=== PATIENT | female | born 1980 | race Two or more races ===

== ENCOUNTER 2017-02-23 15:44 | Emergency (ER) | payer MEDICAID ==
[~2017-02-23] VITALS: Ht 157.5 cm; Wt 63.5 kg
[2017-02-23] MEDS ORDERED: Morphine Sulfate 4mg/ml Inj IVP ONE (16:30)
[2017-02-23] MEDS ORDERED: Metoclopramide 10mg/2ml Inj IVP ONE (16:30)
--- NOTE | 2017-02-23 16:58 | Emergency Room Report ---
History of Present Illness General Chief Complaint: Abdominal Pain Source: Patient Present Illness HPI 36 y/o female c/o abd pain x last night. Assoc sxs include n/v, epigastric pain , decreased PO intake and bloating. States vomiting is continuous and being NPO has not helped with her nausea. Denies eating anything bad or hx of gallstones, GERD, urinary sxs, back pain, or . Denies any other modifying factors. Denies any current f/c/d, back pain, neck pain, photophobia, phonophobia, CP, SOB or headache. Allergies: Coded Allergies: No Known Allergies (Unverified , 02/23/17) Patient History Limited by: language barrier Past Medical History: see triage record Past Surgical History: none Pertinent Family History: none Now: No Reviewed Nursing Documentation: PMH: Agreed, PSxH: Agreed Nursing Documentation-PMH Past Medical History: No Stated History Review of Systems All Other Systems: negative except mentioned in HPI Physical Exam Vital Signs Date Time Temp Pulse Resp B/P Pulse Ox O2 Delivery O2 Flow Rate FiO2 02/23/17 15:59 97.7 105 20 120/71 100 Room Air Sp02 EP Interpretation: reviewed, normal General Appearance: alert, GCS 15, non-toxic, mild distress, other - vomitting in emesis bag Head: normocephalic, atraumatic Eyes: bilateral eye PERRL, bilateral eye normal inspection ENT: hearing grossly normal, normal pharynx, no angioedema, normal voice Neck: full range of motion, supple/symm/no masses Respiratory: chest non-tender, lungs clear, normal breath sounds, speaking full sentences Cardiovascular #1: regular rate, rhythm, no edema Gastrointestinal: normal bowel sounds, soft, non-distended, no guarding, no rebound, tenderness - Epigastric / RUQ, other - + Drake Rectal: deferred Musculoskeletal: back normal, digits/nails normal, gait/station normal Neurologic: alert, oriented x3, responsive, sensory intact Skin: normal color, no rash, warm/dry, well hydrated Medical Decision Making PA Attestation Dr. Grey is my supervising physician with whom patient management has been discussed with. Diagnostic Impression: Primary Impression: Abdominal pain Qualified Codes: R10.84 - Generalized abdominal pain Additional Impressions: Acute cystitis Qualified Codes: N30.00 - Acute cystitis without hematuria Gallbladder polyp ER Course Pt. presents to the ED c/o abdominal pain. Ddx considered but are not limited to viral syndrome, , appendicitis, diverticulitis, constipation, gastroenteritis, abdominal hernia, pancreatitis, cholecystitis, nephrolithiasis, and ovarian torsion. Vital signs: are WNL, pt. is afebrile H&PE are most consistent with Gallbladder Polyp, UTI, Biliary Colic ORDERS / ED INTERVENTIONS: My Orders - GENEVIEVE ADAM Procedure Category Date Status Time Vital Signs CARE 02/23/17 Transmitted 16:23 Iv Access / Saline CARE 02/23/17 Transmitted Lock 16:23 Cbc W/ Differential LAB 02/23/17 Complete 16:23 CMP LAB 02/23/17 Complete 16:23 Lipase LAB 02/23/17 Complete 16:23 Urinalysis Reflex LAB 02/23/17 Complete Microscopy 16:23 Us Abd Complete US 02/23/17 Taken 16:23 Metoclopramide PHA 02/23/17 Complete (Reglan) 16:30 Morphine Sulfate PHA 02/23/17 Complete (Morphine Sulfate) 16:30 Saline 10ml Flush PHA 02/23/17 In Process (Saline 10ml Flush) 16:30 Nothing By Mouth Diet DIET 02/23/17 Transmitted Lunch DISCHARGE: At this time pt. is stable for d/c to home. Will provide printed patient care instructions, and any necessary prescriptions. Care plan and follow up instructions have been discussed with the patient prior to discharge. Laboratory Tests Test 02/23/17 16:44 White Blood Count 14.4 K/UL (4.8-10.8) H Red Blood Count 4.69 M/UL (4.20-5.40) Hemoglobin 14.2 G/DL (12.0-16.0) Hematocrit 43.8 % (37.0-47.0) Mean Corpuscular Volume 93 FL (80-99) Mean Corpuscular Hemoglobin 30.4 PG (27.0-31.0) Mean Corpuscular Hemoglobin Concent 32.5 G/DL (32.0-36.0) Red Cell Distribution Width 12.3 % (11.6-14.8) Platelet Count 292 K/UL (150-450) Mean Platelet Volume 6.4 FL (6.5-10.1) L Neutrophils (%) (Auto) 82.9 % (45.0-75.0) H Lymphocytes (%) (Auto) 6.7 % (20.0-45.0) L Monocytes (%) (Auto) 10.0 % (1.0-10.0) Eosinophils (%) (Auto) 0.1 % (0.0-3.0) Basophils (%) (Auto) 0.2 % (0.0-2.0) Urine Color Yellow Urine Appearance Slightly cloudy Urine pH 5 (4.5-8.0) Urine Specific [place] 1.020 (1.005-1.035) Urine Protein 2+ (NEGATIVE) H Urine Glucose (UA) Negative (NEGATIVE) Urine Ketones 1+ (NEGATIVE) H Urine Occult Blood 5+ (NEGATIVE) H Urine Nitrite Negative (NEGATIVE) Urine Bilirubin Negative (NEGATIVE) Urine Urobilinogen Normal MG/DL (0.0-1.0) Urine Leukocyte Esterase 1+ (NEGATIVE) H Urine RBC 10-15 /HPF (0 - 2) H Urine WBC 5-10 /HPF (0 - 2) H Urine Squamous Epithelial Cells Few /LPF (NONE/OCC) Urine Amorphous Sediment Few /LPF (NONE) H Urine Bacteria Moderate /HPF (NONE) H Sodium Level 136 mEQ/L (135-145) Potassium Level 4.3 mEQ/L (3.4-4.9) Chloride Level 98 mEQ/L (98-107) Carbon Dioxide Level 24 mEQ/L (20-30) Anion Gap 14 (5-15) Blood Urea Nitrogen 15 mg/dL (7-23) Creatinine 0.9 mg/dL (0.5-0.9) Estimate Glomerular Filtration Rate > 60 mL/min (>60) Glucose Level 143 mg/dL (74-106) H Calcium Level 9.2 mg/dL (8.6-10.2) Total Bilirubin 0.5 mg/dL (0.0-1.2) Aspartate Amino Transferase (AST) 15 U/L (5-40) Alanine Aminotransferase (ALT) 19 U/L (3-33) Alkaline Phosphatase 67 U/L (35-104) Total Protein 7.6 g/dL (6.6-8.7) Albumin 4.3 g/dL (3.5-5.2) Globulin 3.3 g/dL Albumin/Globulin Ratio 1.3 (1.0-2.7) Lipase 19 U/L (< 60) CT/MRI/US Diagnostic Results CT/MRI/US Diagnostic Results : Imaging Test Ordered: US Abd Impression Gallbladder Polyp otherwise negative Last Vital Signs Date Time Temp Pulse Resp B/P Pulse Ox O2 Delivery O2 Flow Rate FiO2 02/23/17 18:48 97.6 98 19 124/68 100 Room Air Status: improved Disposition: HOME, SELF-CARE Condition: Improved Scripts Ondansetron Odt* (ZOFRAN ODT*) 8 Mg Tab.rapdis 8 MG ORAL Q8HR Y for Nausea & Vomiting, #20 TAB Prov: GENEVIEVE ADAM.AZachery 02/23/17 Cephalexin* (KEFLEX*) 500 Mg Capsule 500 MG ORAL EVERY 12 HOURS, #14 CAP 0 Refills Prov: GENEVIEVE ADAM.A. 02/23/17 Patient Instructions: Abdominal Pain, Adult, Low-Fat Diet for Pancreatitis or Gallbladder Conditions Additional Instructions: Take medication as directed. Patient advised to follow up with PCP regarding Gallbladder polyp and to follow up on symptoms. Patient to come back if symptoms worsen over the next 4-10 hours. Patient instructed to stay well hydrated and to use a liquid diet and then progress to soft bland diet as tolerated before reverting back to a regular diet. Patient Education was given to the patient. Patient advised if irreretractible pain, rectal bleeding, or no BM to go to ER immediately. GENEVIEVE ADAM Feb 23, 2017 16:58
[2017-02-23 17:00] LABS: BASOPHILS % (AUTO) 0.2 % (0.0-2.0); EOSINOPHILS % (AUTO) 0.1 % (0.0-3.0); LYMPHOCYTES % (AUTO) 6.7 % (20.0-45.0); MEAN CORPUSCULAR HEMOGLOBIN 30.4 PG (27.0-31.0); MEAN CORPUSCULAR HGB CONC 32.5 G/DL (32.0-36.0); MEAN CORPUSCULAR VOLUME 93 FL (80-99); MEAN PLATELET VOLUME 6.4 FL (6.5-10.1); NEUTROPHILS % (AUTO) 82.9 % (45.0-75.0); PLATELET COUNT 292 K/UL (150-450); RED BLOOD COUNT 4.69 M/UL (4.20-5.40); RED CELL DISTRIBUTION WIDTH 12.3 % (11.6-14.8); WHITE BLOOD COUNT 14.4 K/UL (4.8-10.8)
[2017-02-23 17:01] LABS: APPEARANCE,URINE SLIGHTLY CLOUDY; KETONES,URINE 1+ (NEGATIVE); LEUKOCYTE ESTERASE ,URINE 1+ (NEGATIVE); NITRITE,URINE NEGATIVE (NEGATIVE); PH,URINE 5 (4.5-8.0); PROTEIN,URINE 2+ (NEGATIVE); UROBILINOGEN,URINE NORMAL MG/DL (0.0-1.0)
[2017-02-23 17:30] LABS: ALANINE AMINOTRANSFERASE 19 U/L (3-33); ALBUMIN/GLOBULIN RATIO 1.3 (1.0-2.7); ANION GAP 14 (5-15); ASPARTATE AMINO TRANSFERASE 15 U/L (5-40); CALCIUM 9.2 mg/dL (8.6-10.2); CARBON DIOXIDE 24 mEQ/L (20-30); CHLORIDE 98 mEQ/L (98-107); CREATININE 0.9 mg/dL (0.5-0.9); GLOMERULAR FILTRATION RATE > 60 mL/min (>60); HEMOLYSIS 4; LIPASE 19 U/L (< 60); POTASSIUM 4.3 mEQ/L (3.4-4.9); SODIUM 136 mEQ/L (135-145); TOTAL PROTEIN 7.6 g/dL (6.6-8.7)
[2017-02-23 17:50] LABS: AMORPHOUS SEDIMENT,UR FEW /LPF; BACTERIA,URINE MODERATE /HPF; SQUAMOUS EPITHELIAL CELL,UR FEW /LPF (NONE/OCC)
[2017-02-23] MEDS ORDERED: CEPHALEXIN500 MG ORAL (18:06)
[2017-02-23] MEDS ORDERED: ZOFRAN ODT8 MG ORAL (18:06)
[2017-02-23 18:48] VITALS: BP 124/68
--- NOTE | 2017-02-24 10:16 | Diagnostic Imaging Report ---
Indication: Abdominal pain, vomiting x1 day Technique: [place]-scale and duplex images of the upper abdomen were obtained Comparison: None Findings: Gallbladder demonstrates a non-shadowing non-mobile echogenic mural focus which measures approximately 7 mm in diameter. No stones. No wall thickening nor pericholecystic fluid Sonographic Sr's sign is negative. Common bile duct measures 5 mm in diameter. No intrahepatic biliary ductal dilatation. Liver demonstrates diffusely increased echogenicity, consistent with diffuse hepatocellular disease, most likely fatty change. Area of focal sparing is seen in the usual location adjacent to the gallbladder fossa Portal vein and hepatic veins are patent. Pancreas is unremarkable. Spleen is unremarkable. Left kidney measures 10.9 cm in length. Right kidney measures 11.5 cm length. Both kidneys demonstrate normal echogenicity. There is no hydronephrosis. No focal abnormality . Non-aneurysmal abdominal aorta . Impression: Liver demonstrates diffusely increased echogenicity, consistent with diffuse hepatocellular disease, most likely fatty change. Note small area of focal sparing in the usual location 7 mm gallbladder polyp Negative for gallstones or dilated ducts.
== END 2017-02-23 18:50 | disposition home or self-care (01) ==
LOC: EMR 18:47
DX: R10.84 Generalized abdominal pain (principal); N30.00 Acute cystitis without hematuria; K82.4 Cholesterolosis of gallbladder
CPT/HCPCS: 36415; 76700; 80053; 81003; 83690; 85025; 87086; 96374; 96375; 99284; J2270; J2765